=== PATIENT | male | born 1960 | race Caucasian/White ===

== ENCOUNTER 2017-12-26 15:11 | Inpatient (IN) | payer SELFPAY ==
[~2017-12-26] VITALS: Ht 170.2 cm; Wt 89.8 kg
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
[2017-12-26 16:55] LABS: BASOPHILS # (AUTO) 0.1 10^3/uL (0.0-0.1); BASOPHILS % (AUTO) 0 % (0-10); EOSINOPHILS # (AUTO) 0.2 10^3/uL (0.0-0.3); EOSINOPHILS % (AUTO) 1 % (0-10); HEMATOCRIT 39 % (40-54); HEMOGLOBIN 13.4 G/DL (13.3-17.7); LYMPHOCYTES # (AUTO) 1.6 X 10^3 (1.0-4.0); LYMPHOCYTES % (AUTO) 11 % (12-44); MEAN CORPUSCULAR HEMOGLOBIN 31 PG (25-34); MEAN CORPUSCULAR HGB CONC 34 G/DL (32-36); MEAN CORPUSCULAR VOLUME 91 FL (80-99); MEAN PLATELET VOLUME 11.5 FL (7.4-10.4); MONOCYTES # (AUTO) 1.4 X 10^3 (0.0-1.0); MONOCYTES % (AUTO) 10 % (0-12); NEUTROPHILS % (AUTO) 78 % (42-75); PLATELET COUNT 292 10^3/uL (130-400); RED CELL DISTRIBUTION WIDTH 13.3 % (10.0-14.5); WHITE BLOOD COUNT 14.1 10^3/uL (4.3-11.0)
--- NOTE | 2017-12-26 17:09 | Diagnostic Imaging Report ---
INDICATION: Hypertension. FINDINGS: Heart size within the upper limits of normal. There is no vascular congestion. No edema, pneumonia, effusion or pneumothorax. IMPRESSION: Clear lungs with mild hyperexpansion, upper limits heart size but no acute-appearing abnormality. Dictated by: Dictated on workstation # [id number]
[2017-12-26] MEDS ORDERED: NS IV 1000 ML 1,000 ML IV ONE (17:12)
[2017-12-26] MEDS ORDERED: morphine INJ 10 MG/ML 1ML (SYR OR VIAL) IVP STA ×2 (17:12→18:01)
--- NOTE | 2017-12-26 17:14 | Diagnostic Imaging Report ---
PROCEDURE: CT head without contrast. TECHNIQUE: Multiple contiguous axial images were obtained through the brain without the use of intravenous contrast. INDICATION: Severe headache, dizziness, and blurred vision for two weeks. COMPARISON STUDY: None. FINDINGS: Noncontrast CT scanning of the head demonstrates central atrophy greater than cortical atrophy. Periventricular white matter changes are present consistent with transependymal spread of fluid. Hypodensity is present in the bubba worrisome for edema or mass lesion. Recommend MRI for further evaluation. 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 Recommend MRI for further evaluation. Dictated by: Dictated on workstation # [id number]
[2017-12-26 17:15] LABS: ALANINE AMINOTRANSFERASE 13 U/L (0-55); ALKALINE PHOSPHATASE 53 U/L (40-136); BILIRUBIN,TOTAL 0.9 MG/DL (0.1-1.0); BUN/CREATININE RATIO 23; CALCIUM 10.2 MG/DL (8.5-10.1); CARBON DIOXIDE 26 MMOL/L (21-32); CHLORIDE 102 MMOL/L (98-107); CREATINE KINASE 42 U/L (30-200); CREATININE SERUM 1.41 MG/DL (0.60-1.30); GFR ESTIMATED 52; GLUCOSE 97 MG/DL (70-105); MAGNESIUM 2.2 MG/DL (1.8-2.4); POTASSIUM 4.4 MMOL/L (3.6-5.0); SODIUM 138 MMOL/L (135-145); TOTAL PROTEIN 8.2 GM/DL (6.4-8.2)
[2017-12-26] MEDS ORDERED: cefTRIAXone INJECTION 1,000 MG in NS (IVPB) 100 ML IV ONE (17:15)
[2017-12-26 17:21] LABS: BAND NEUTROPHILS 1 %; BASOPHILS % (MANUAL) 1 %; EOSINOPHILS % (MANUAL) 2 %; LYMPHOCYTES % (MANUAL) 26 %; MONOCYTES % (MANUAL) 2 %; NEUTROPHILS % (MANUAL) 68 %; RBC MORPH NORMAL
[2017-12-26 17:34] LABS: CREATINE KINASE MB 1.9 NG/ML (<6.6); MYOGLOBIN SERUM 52.6 NG/ML (10.0-92.0); TSH (THYROID ANALYZER) 1.06 UIU/ML (0.35-4.94)
[2017-12-26] MEDS ORDERED: LABETALOL HCL 20 MG/4 ML VIAL IV ONE (17:45)
[2017-12-26] MEDS ORDERED: GADOBUTROL 10 MMOL/10 ML (GADAVIST) VIAL IV ONE (18:30)
--- NOTE | 2017-12-26 19:09 | Diagnostic Imaging Report ---
PROCEDURE: MR imaging of the brain with and without contrast. TECHNIQUE: Multiplanar, multisequence MR imaging of the brain was performed with and without contrast. INDICATION: Severe head pain, hypertension, dizziness and blurred vision. COMPARISON: Exam interpreted in correlation with head CT performed earlier this same date. FINDINGS: There is swelling and abnormal edema in the brainstem epicenter at the level of the bubba but superiorly extending into the midbrain most notably at the peduncles. There is extension of edema involving into the right greater than left middle cerebellar peduncles as well as the inferior cerebellar hemispheres. There is periventricular white matter hyperintensity on T2 and FLAIR weighted pulse sequences, in part chronic, however some transependymal resorption of CSF could not be excluded as there is a mild degree of lateral and third ventriculomegaly. The brainstem and remaining posterior fossa revealed no abnormal diffusion restriction that would be typically associated with central pontine myelinolysis. This may all reflect a reversible disease as the sequelae of severe hypertension. However, followup with appropriate treatment. There is no abnormal enhancement however altered signal owing to a glioma could not be definitively excluded and would justify followup. No abnormal parenchymal or meningeal enhancement. Supratentorial brain appeared unremarkable aside from the periventricular white matter T2 signal. No extra-axial fluid collection. There is no hemorrhage. There were no findings of an infarct. IMPRESSION: Swelling and edema at the brainstem, most notably at the bubba extending through the middle cerebellar peduncles and extending cephalad into the cerebral peduncles of the midbrain. There is mild lateral and third ventriculomegaly of uncertain acuity. No abnormal enhancement nor abnormal diffusion restriction. Given the history, the sequelae of hypertension is suspected but abnormal osmolality and abnormal sodium could not be excluded in the appropriate scenario. A followup exam within 2-3 weeks is recommended as glioma could not be definitively excluded although felt less likely. In addition, if the severity of hypertension is not substantial and there were no other of abnormal lab studies, CSF analysis and lumbar puncture would be recommended if infection were suspected. Other processes such as ADEM as well as demyelinating disease could also less commonly have this appearance. Again, the sequelae of hypertension is felt to be the leading consideration but this requires clinical correlation and short-term followup. No infarct or hemorrhage. No other substantial abnormality. Dictated by: Dictated on workstation # [id number]
[2017-12-26 19:10] VITALS: BP 137/92
[2017-12-26] MEDS ORDERED: VANCOMYCIN 2000 MG/NS 500 ML IVPB IV NR ×2 (20:32)
[2017-12-26] MEDS ORDERED: ONDANSETRON 4 MG/2 ML (SDV) Z0FRAN IVP PRN (20:45)
[2017-12-26] MEDS: NS W/KCL 20 MEQ/L 1,000 ML IV SCH (22:08)
[2017-12-26] MEDS: morphine INJ 4 MG/ML 1 ML (VIAL/SYRINGE) IVP PRN (22:30)
[2017-12-26] MEDS ORDERED: VANCOMYCIN 1000 MG/VIAL ONE (22:47)
[2017-12-26] MEDS ORDERED: NS IV 500 ML 500 ML ONE (22:53)
[2017-12-27] VITALS (7 sets, daily range): BP systolic 160–193; BP diastolic 50–117
[2017-12-27] MEDS ORDERED: amLODIPine 10 MG (NORVASC) TAB ONE (04:56)
[2017-12-27] MEDS ORDERED: lisINopril 20 MG (PRINIVIL) TABLET ONE (05:00)
[2017-12-27] MEDS: morphine INJ 4 MG/ML 1 ML (VIAL/SYRINGE) IVP PRN (05:09)
[2017-12-27 06:04] LABS: BASOPHILS % (AUTO) 0 % (0-10); EOSINOPHILS # (AUTO) 0.3 10^3/uL (0.0-0.3); EOSINOPHILS % (AUTO) 2 % (0-10); HEMATOCRIT 34 % (40-54); HEMOGLOBIN 11.5 G/DL (13.3-17.7); LYMPHOCYTES # (AUTO) 1.8 X 10^3 (1.0-4.0); LYMPHOCYTES % (AUTO) 16 % (12-44); MEAN CORPUSCULAR HEMOGLOBIN 31 PG (25-34); MEAN CORPUSCULAR HGB CONC 34 G/DL (32-36); MEAN CORPUSCULAR VOLUME 93 FL (80-99); MEAN PLATELET VOLUME 11.3 FL (7.4-10.4); MONOCYTES % (AUTO) 9 % (0-12); NEUTROPHILS # (AUTO) 8.3 X 10^3 (1.8-7.8); NEUTROPHILS % (AUTO) 73 % (42-75); PLATELET COUNT 230 10^3/uL (130-400); RED BLOOD COUNT 3.67 10^6/uL (4.35-5.85); RED CELL DISTRIBUTION WIDTH 13.2 % (10.0-14.5); WHITE BLOOD COUNT 11.4 10^3/uL (4.3-11.0)
[2017-12-27 06:26] LABS: ALANINE AMINOTRANSFERASE 9 U/L (0-55); ALBUMIN 3.3 GM/DL (3.2-4.5); ALKALINE PHOSPHATASE 42 U/L (40-136); BILIRUBIN,TOTAL 0.6 MG/DL (0.1-1.0); BUN/CREATININE RATIO 20; CALCIUM 9.1 MG/DL (8.5-10.1); CARBON DIOXIDE 24 MMOL/L (21-32); CHLORIDE 103 MMOL/L (98-107); CREATININE SERUM 1.28 MG/DL (0.60-1.30); GFR ESTIMATED 58; GLUCOSE 112 MG/DL (70-105); POTASSIUM 4.5 MMOL/L (3.6-5.0); SODIUM 136 MMOL/L (135-145); TOTAL PROTEIN 6.4 GM/DL (6.4-8.2)
[2017-12-27 06:36] LABS: CARDIAC PROFILE 2 < 0.30 NG/ML (<0.30)
[2017-12-27] MEDS ORDERED: THIAMINE 100 MG (VITAMIN B-1) TAB PO SCH (07:00)
[2017-12-27] MEDS: NS W/KCL 20 MEQ/L 1,000 ML IV SCH ×2 (07:32→07:52)
[2017-12-27] MEDS ORDERED: MAGNESIUM OXIDE (MAG-OX)400 MG TAB PO SCH (08:00)
[2017-12-27] MEDS ORDERED: VANCOMYCIN 1250 MG/NS 250 ML IVPB IV SCH ×2 (08:00)
[2017-12-27] MEDS ORDERED: lisINopril 20 MG (PRINIVIL) TABLET PO NR (08:00)
[2017-12-27] MEDS: HYDROcodone/APAP 5 MG/325 MG (LORTAB) TAB PO PRN ×2 (08:01→15:55)
[2017-12-27] MEDS ORDERED: lisINopril 20 MG (PRINIVIL) TABLET PO SCH (09:00)
[2017-12-27] MEDS ORDERED: amLODIPine 5 MG (NORVASC) TAB PO SCH ×2 (09:00)
[2017-12-27] MEDS ORDERED: FOLIC ACID 1 MG TAB PO SCH (09:00)
--- NOTE | 2017-12-27 09:07 | Consultation-Cardiology ---
HPI-Cardiology Cardiology Consultation: Date of Consultation 12/27/17 Date of Admission Attending Physician Agata Marlow MD Admitting Physician [facility] Consulting Physician Prabhu HOOVER MD HPI: Time Seen by Provider: 09:15 Chief Complaint: Hypertension, left upper extremity swelling This is a 57-year-old gentleman who has not been to physicians almost throughout his life. He presented to the ER with complain of left upper extremity swelling. Significantly elevated blood pressure. Patient has had frequent headaches in the last few weeks. However he denies any other cardiac symptoms including chest pain, shortness of breath, palpitation, near syncope or syncope. Active smoker. Review of Systems-Cardiology Review of Systems Constitutional: As described under HPI; No no symptoms reported, No chills, No fever, No lightheadedness, No malaise, No tiredness, No weight loss, No weight gain, No other Eyes: No As described under HPI, No no symptoms reported, No blindness, No blurred vision, No contact lenses, No drainage, No decreased acuity, No foreign body sensation, No pain, No vision change Ears/Nose/Throat: No As described under HPI, No no symptoms reported, No chronic hearing loss, No ear discharge, No ear pain, No nasal drainage, No ulcerations Respiratory: No no symptoms reported; As described under HPI; No As described under HPI, No cough, No orthopnea, No shortness of breath, No SOB with excertion Cardiovascular: No no symptoms reported; As described under HPI; No As described under HPI, No chest pain, No edema, No irregular heart rate, No lightheadedness, No palpitations Gastrointestinal: No no symptoms reported, No As described under HPI, No abdomen distended, No abdominal pain, No blood streaked bowels, No constipation , No diarrhea, No nausea, No vomiting, No stool coloration changes Genitourinary: No As described under HPI, No burning, No dysuria, No discharge , No frequency, No flank pain, No hematuria, No urgency Musculoskeletal: other (upper extremity swelling) Skin: No rash, No skin related problems, No ulcerations Psychiatric/Neurological: headache; No anxiety, No depression, No seizure, No focal weakness, No syncope Hematologic: No bleeding abnormalities All Other Systems Reviewed Negative Unless Noted: Yes (Negative excepted noted.) NGR-Cxiuod-Bhmqbt Hx Patient Social History Alcohol Use: Occasionally Uses Recreational Drug Use: Yes (tried pot for pain in hand) Smoking Status: Current Everyday Smoker 2nd Hand Smoke Exposure: Yes Recent Foreign Travel: No Recent Infectious Disease Expo: No Hospitalization with Isolation: Denies Physical Abuse Screen: No Sexual Abuse: No Past Medical History PMH As described under Assessment. Allergies and Home Medications Allergies Coded Allergies: No Known Drug Allergies (Unverified , 12/26/17) Home Medications No Active Prescriptions or Reported Meds Patient Home Medication List Home Medication List Reviewed: Yes Physical Exam-Cardiology Physical Exam Vital Signs/I&O 12/27/17 12/27/17 12/27/17 12/27/17 04:30 04:33 07:00 08:00 Temp 98.5 97.4 Pulse 87 91 87 Resp 20 20 B/P (MAP) 193/117 (142) 186/114 (138) 160/100 (120) Pulse Ox 96 96 O2 Delivery Room Air Room Air 12/27/17 12:00 Temp 97.4 Pulse 87 Resp 20 B/P (MAP) 160/50 (86) Pulse Ox 96 O2 Delivery Room Air 12/27/17 00:00 Intake Total 1400 ml Balance 1400 ml Capillary Refill : Less Than 3 Seconds Constitutional: appears stated age, AAO x 3; No apparent distress; well- developed, well-nourished HEENT: PERRL; No normal ENT inspection, No TMs normal, No pharynx normal, No scleral icterus (R), No scleral icterus (L), No pale conjunctivae (R), No pale conjunctivae (L), No photophobia, No TM abnormal (R), No TM abnormal (L), No pharyngeal erythema, No tonsillar exudate, No other, No discharge, No EOMI; hearing is well preserved; No hard of hearing; oral hygience is good; No ulceration, No xanthelasmas are seen Neck: No non-tender, No full range of motion, No supple, No normal inspection, No carotid bruit, No limited range of motion, No lymphadenopathy (R), No lymphadenopathy (L), No tender lateral, No tender midline, No thyromegaly, No other; carotid pulses are 2 + bilaterally; No with good upstrokes Respiratory: No accessory muscle use, No respiratory distress, No chest tender , No chest expansion is symmetric; chest is bilaterally symmetric; No lungs clear to percussion; lungs clear to auscultation; No crackles, No rhonchi, No rales, No stridor, No wheezing, No pleural rub, No other Cardiovascular: regular rate-rhythm; No irregularly irregular, No extra beats, No parasternal heave is noted, No JVD, No edema, No bradycardia, No tachycardia , No point of maximal impulse, No cardiac thrills are palpable; S1 and S2; No gallop/S3, No gallop/S4, No diastolic murmur, No systolic murmur, No friction rub, No click, No other Gastrointestinal: No tender, No soft, No round, No distended, No pulsatile mass , No organomegaly, No guarding, No rebound, No tenderness, No hernia, No mass, No audible bowel sounds, No abnormal bowel sounds, No abdominal bruits, No spleenomegaly, No other Rectal: deferred Extremities: No normal range of motion, No non-tender, No normal inspection, No pedal edema, No calf tenderness, No normal capillary refill, No pelvis stable , No calf tenderness, No inflammation, No pedal edema, No slow capillary refill , No swelling; other (upper extremity swelling); No abrasion, No clubbing, No cyanosis, No ecchymosis, No laceration, No no lower extremity edema bilateral, No significant edema, No tenderness, No wound Neurologic/Psychiatric: no motor/sensory deficits, alert, normal mood/affect, oriented x 3, power is 5/5 both on sides Skin: No normal color, No warm/dry, No cyanosis, No cool, No diaphoresis, No damp, No ecchymosis, No jaundice, No mottled, No pallor, No rash, No tattoos/ piercings, No ulcerations, No rash on exposed areas, No ulcerations on exposed areas, No other Data Review Labs Laboratory Tests 12/26/17 16:40: White Blood Count 14.1H, Red Blood Count 4.30L, Hemoglobin 13.4, Hematocrit 39L , Mean Corpuscular Volume 91, Mean Corpuscular Hemoglobin 31, Mean Corpuscular Hemoglobin Concent 34, Red Cell Distribution Width 13.3, Platelet Count 292, Mean Platelet Volume 11.5H, Neutrophils (%) (Auto) 78H, Lymphocytes (%) (Auto) 11L, Monocytes (%) (Auto) 10, Eosinophils (%) (Auto) 1, Basophils (%) (Auto) 0, Neutrophils # (Auto) 11.0H, Lymphocytes # (Auto) 1.6, Monocytes # (Auto) 1.4H, Eosinophils # (Auto) 0.2, Basophils # (Auto) 0.1, Neutrophils % (Manual) 68, Lymphocytes % (Manual) 26, Monocytes % (Manual) 2, Eosinophils % (Manual) 2, Basophils % (Manual) 1, Band Neutrophils 1, Blood Morphology Comment NORMAL, Sodium Level 138, Potassium Level 4.4, Chloride Level 102, Carbon Dioxide Level 26, Anion Gap 10, Blood Urea Nitrogen 32H, Creatinine 1.41H, Estimat Glomerular Filtration Rate 52, BUN/Creatinine Ratio 23, Glucose Level 97, Glucometer 100, Lactic Acid Level 1.10, Calcium Level 10.2H, Magnesium Level 2.2, Total Bilirubin 0.9, Aspartate Amino Transf (AST/SGOT) 16, Alanine Aminotransferase ( ALT/SGPT) 13, Alkaline Phosphatase 53, Total Creatine Kinase 42, Creatine Kinase MB 1.9, Myoglobin 52.6, Troponin I < 0.30, C-Reactive Protein High Sensitivity 18.58H, Total Protein 8.2, Albumin 4.0, TSH [place] Testing 1.06 12/27/17 05:50: White Blood Count 11.4H, Red Blood Count 3.67L, Hemoglobin 11.5L, Hematocrit 34L , Mean Corpuscular Volume 93, Mean Corpuscular Hemoglobin 31, Mean Corpuscular Hemoglobin Concent 34, Red Cell Distribution Width 13.2, Platelet Count 230, Mean Platelet Volume 11.3H, Neutrophils (%) (Auto) 73, Lymphocytes (%) (Auto) 16 , Monocytes (%) (Auto) 9, Eosinophils (%) (Auto) 2, Basophils (%) (Auto) 0, Neutrophils # (Auto) 8.3H, Lymphocytes # (Auto) 1.8, Monocytes # (Auto) 1.0, Eosinophils # (Auto) 0.3, Basophils # (Auto) 0.0, Sodium Level 136, Potassium Level 4.5, Chloride Level 103, Carbon Dioxide Level 24, Anion Gap 9, Blood Urea Nitrogen 26H, Creatinine 1.28, Estimat Glomerular Filtration Rate 58, BUN/ Creatinine Ratio 20, Glucose Level 112H, Calcium Level 9.1, Total Bilirubin 0.6 , Aspartate Amino Transf (AST/SGOT) 14, Alanine Aminotransferase (ALT/SGPT) 9, Alkaline Phosphatase 42, Troponin I < 0.30, Total Protein 6.4, Albumin 3.3, Triglycerides Level 87, Cholesterol Level 165, LDL Cholesterol Direct 101, VLDL Cholesterol 17, HDL Cholesterol 44 12/27/17 10:45: Urine Color YELLOW, Urine Clarity CLEAR, Urine pH 5, Urine Specific [place] 1.020, Urine Protein 3+H, Urine Glucose (UA) NEGATIVE, Urine Ketones NEGATIVE, Urine Nitrite NEGATIVE, Urine Bilirubin NEGATIVE, Urine Urobilinogen NORMAL, Urine Leukocyte Esterase NEGATIVE, Urine RBC (Auto) NEGATIVE, Urine RBC RARE, Urine WBC RARE, Urine Crystals NONE, Urine Bacteria NEGATIVE, Urine Casts NONE, Urine Mucus NEGATIVE, Urine Culture Indicated NO, Urine Opiates Screen POSITIVEH , Urine Oxycodone Screen NEGATIVE, Urine Methadone Screen NEGATIVE, Urine Propoxyphene Screen NEGATIVE, Urine Barbiturates Screen NEGATIVE, Ur Tricyclic Antidepressants Screen NEGATIVE, Urine Phencyclidine Screen NEGATIVE, Urine Amphetamines Screen NEGATIVE, Urine Methamphetamines Screen NEGATIVE, Urine Benzodiazepines Screen NEGATIVE, Urine Cocaine Screen NEGATIVE, Urine Cannabinoids Screen POSITIVEH ECG Impression ECG Initial ECG Rhythm: Normal Sinus A/P-Cardiology Assessment/Admission Diagnosis Left upper extremity cellulitis, Severe hypertension, Active smoking Plan Cellulitis: IV antibiotics. May require ultrasound if no significant improvement. Severe hypertension: Continue lisinopril and amlodipine. Blood pressure much more stable today. Request an echocardiogram. Active smoking: Smoking cessation was strongly recommended. Thank you for your consultation. Please call me if you have any questions. Rachelle Hoover MD, FACP, FACC, FSCAI, FHRS, CCDS Interventional Cardiology Cardiac Electrophysiology Vascular Medicine and Endovascular Interventions Clinical Quality Measures DVT/VTE Risk/Contraindication: Risk Factor Score Per Nursin RFS Level Per Nursing on Admit: 4+=Very High Prabhu HOOVER MD December 27, 2017 09:07
[2017-12-27 11:01] LABS: BILIRUBIN,URINE NEGATIVE (NEGATIVE); CLARITY,URINE CLEAR; COLOR,URINE YELLOW; GLUCOSE, URINE (UA) NEGATIVE (NEGATIVE); KETONES,URINE NEGATIVE (NEGATIVE); LEUKOCYTE ESTERASE ,URINE NEGATIVE (NEGATIVE); NITRITE,URINE NEGATIVE (NEGATIVE); PH,URINE 5 (5-9); PROTEIN,URINE 3+ (NEGATIVE); UROBILINOGEN,URINE NORMAL (NORMAL)
[2017-12-27 11:27] LABS: BACTERIA,URINE NEGATIVE /HPF; RBC,URINE RARE /HPF; WBC,URINE RARE /HPF
[2017-12-27 11:36] LABS: AMPHETAMINE SCREEN, URINE NEGATIVE (NEGATIVE); BARBITURATE SCREEN URINE NEGATIVE (NEGATIVE); BENZODIAZEPINES SCREEN URINE NEGATIVE (NEGATIVE); CANNABINOID SCREEN, URINE POSITIVE (NEGATIVE); COCAINE SCREEN URINE NEGATIVE (NEGATIVE); METHADONE STAT NEGATIVE (NEGATIVE); METHAMPHETAMINE SCREEN URINE S NEGATIVE (NEGATIVE); OPIATE SCREEN URINE POSITIVE (NEGATIVE); OXYCODONE STAT NEGATIVE (NEGATIVE); PROPOXYPHENE STAT NEGATIVE (NEGATIVE); TRICYCLIC ANTIDEPRESSANTS SCRE NEGATIVE (NEGATIVE)
[2017-12-27 12:21] LABS: CHOLESTEROL 165 MG/DL (< 200); HDL CHOLESTEROL 44 MG/DL (40-60); TRIGLYCERIDES 87 MG/DL (<150); VLDL CHOLESTEROL 17 MG/DL (5-40)
--- NOTE | 2017-12-27 15:50 | Short Stay Summary ---
History of Present Illness History of Present Illness Reason for visit/HPI 57 yo M that was sent from walkin clinic at [facility] with HTN urgency and concerns for cellulitis on LUE. Patient states that he has been getting headaches and blurry vision for the last 2 weeks. Prior to that he has not seen a doctor since he was 12 yo. States that he has been told several times when giving plasma that his blood pressure was elevated but never saw anyone for it. Denies any other medical problems. Denies any stroke, [place] or heart disease in his family. Denies ever having chest pain or shortness of breath. Previous EtOH use but states that he does not drink much anymore. Date of Admission December 26, 2017 at 19:33 Date of Discharge 12/27/17 Time Seen by Provider: 10:25 Attending Physician Ezra Marlow MD Admitting Physician [place] [place] Consult Allergies and Home Medications Allergies Coded Allergies: No Known Drug Allergies (Unverified , 12/26/17) Home Medications Amlodipine Besylate 5 Mg Tablet, 10 MG PO DAILY Prescribed by: EZRA MARLOW on 12/27/17 1557 Lisinopril 20 Mg Tablet, 20 MG PO DAILY@0900 Prescribed by: EZRA MARLOW on 12/27/17 1557 Sulfamethoxazole/Trimethoprim 1 Each Tablet, 1 EACH PO BID Prescribed by: EZRA MARLOW on 12/27/17 1557 Patient Home Medication List Home Medication List Reviewed: Yes Past Pdllvvv-Cnzjvs-Lgivno Hx Patient Social History Alcohol Use: Occasionally Uses Recreational Drug Use: Yes (tried pot for pain in hand) Smoking Status: Current Everyday Smoker 2nd Hand Smoke Exposure: Yes Physical Abuse Screen: No Sexual Abuse: No Recent Foreign Travel: No Contact w/other who traveled: No Recent Hopitalizations: No Recent Infectious Disease Expo: No Seasonal Allergies Seasonal Allergies: No Surgeries No Respiratory No Cardiovascular No Neurological Yes Headaches /Migraines Reproductive System Sexually Transmitted Disease: No HIV/AIDS: No Genitourinary No Gastrointestinal No Musculoskeletal No Endocrine History of Endocrine Disorders: No HEENT History of HEENT Disorders: No Cancer No Psychosocial History of Psychiatric Problem: No Integumentary History of Skin or Integumenta: No Blood Transfusions History of Blood Disorders: No Adverse Reaction to a Blood Tr: No Family Medical History Significant Family History: No Pertinent Family Hx Constitutional: No chills; dizziness; No fever; malaise EENTM: blurred vision; No vision loss, No nose congestion Respiratory: no symptoms reported; No cough, No dyspnea on exertion, No short of breath Cardiovascular: no symptoms reported; No chest pain, No edema, No palpitations Gastrointestinal: no symptoms reported; No abdominal pain, No constipation, No diarrhea, No loss of appetite, No nausea, No vomiting Genitourinary: no symptoms reported; No dysuria, No frequency, No hematuria Musculoskeletal: No back pain, No joint pain; joint swelling (Left UE), muscle pain Skin: rash (LUE) Psychiatric/Neurological: Headache; Denies Numbness, Denies Tingling, Denies Weakness Physical Exam Vital Signs Vital Signs - First Documented 12/26/17 12/26/17 15:13 19:10 Temp 98.1 Pulse 101 Resp 18 B/P (MAP) 225/153 (177) Pulse Ox 93 O2 Delivery Room Air Capillary Refill : Less Than 3 Seconds General Appearance: No Apparent Distress, WD/WN HEENT: PERRL/EOMI Neck: Full Range of Motion, Normal Inspection, Non Tender, Supple; No Carotid Bruit Respiratory: Chest Non Tender, Lungs Clear, Normal Breath Sounds, No Accessory Muscle Use, No Respiratory Distress Cardiovascular: Regular Rate, Rhythm, No Murmur, Normal Peripheral Pulses Gastrointestinal: Normal Bowel Sounds, No Organomegaly, Non Tender, Soft Back: Normal Inspection, No CVA Tenderness, No Vertebral Tenderness Extremity: Normal Capillary Refill, Non Tender, No Calf Tenderness, No Pedal Edema, Other (LUE with swelling and erythema with mild ttp) Neurologic/Psychiatric: Alert, Oriented x3, No Motor/Sensory Deficits, Normal Mood/Affect, event services manager II-XII Norm as Tested Skin: Erythema (warmth LUE), Rash Lymphatic: No Adenopathy Clinical Quality Measures DVT/VTE Risk/Contraindication: Risk Factor Score Per Nursin RFS Level Per Nursing on Admit: 4+=Very High Short Stay Diagnosis Discharge Diagnosis-Short Stay Admission Diagnosis: HTN Urgency LUE Cellulitis Acute kidney failure likely 2/2 HTN Final Discharge Diagnosis: See above Conclusion Labs Laboratory Tests 12/26/17 16:40: White Blood Count 14.1H, Red Blood Count 4.30L, Hemoglobin 13.4, Hematocrit 39L , Mean Corpuscular Volume 91, Mean Corpuscular Hemoglobin 31, Mean Corpuscular Hemoglobin Concent 34, Red Cell Distribution Width 13.3, Platelet Count 292, Mean Platelet Volume 11.5H, Neutrophils (%) (Auto) 78H, Lymphocytes (%) (Auto) 11L, Monocytes (%) (Auto) 10, Eosinophils (%) (Auto) 1, Basophils (%) (Auto) 0, Neutrophils # (Auto) 11.0H, Lymphocytes # (Auto) 1.6, Monocytes # (Auto) 1.4H, Eosinophils # (Auto) 0.2, Basophils # (Auto) 0.1, Neutrophils % (Manual) 68, Lymphocytes % (Manual) 26, Monocytes % (Manual) 2, Eosinophils % (Manual) 2, Basophils % (Manual) 1, Band Neutrophils 1, Blood Morphology Comment NORMAL, Sodium Level 138, Potassium Level 4.4, Chloride Level 102, Carbon Dioxide Level 26, Anion Gap 10, Blood Urea Nitrogen 32H, Creatinine 1.41H, Estimat Glomerular Filtration Rate 52, BUN/Creatinine Ratio 23, Glucose Level 97, Glucometer 100, Lactic Acid Level 1.10, Calcium Level 10.2H, Magnesium Level 2.2, Total Bilirubin 0.9, Aspartate Amino Transf (AST/SGOT) 16, Alanine Aminotransferase ( ALT/SGPT) 13, Alkaline Phosphatase 53, Total Creatine Kinase 42, Creatine Kinase MB 1.9, Myoglobin 52.6, Troponin I < 0.30, C-Reactive Protein High Sensitivity 18.58H, Total Protein 8.2, Albumin 4.0, TSH [place] Testing 1.06 12/27/17 05:50: White Blood Count 11.4H, Red Blood Count 3.67L, Hemoglobin 11.5L, Hematocrit 34L , Mean Corpuscular Volume 93, Mean Corpuscular Hemoglobin 31, Mean Corpuscular Hemoglobin Concent 34, Red Cell Distribution Width 13.2, Platelet Count 230, Mean Platelet Volume 11.3H, Neutrophils (%) (Auto) 73, Lymphocytes (%) (Auto) 16 , Monocytes (%) (Auto) 9, Eosinophils (%) (Auto) 2, Basophils (%) (Auto) 0, Neutrophils # (Auto) 8.3H, Lymphocytes # (Auto) 1.8, Monocytes # (Auto) 1.0, Eosinophils # (Auto) 0.3, Basophils # (Auto) 0.0, Sodium Level 136, Potassium Level 4.5, Chloride Level 103, Carbon Dioxide Level 24, Anion Gap 9, Blood Urea Nitrogen 26H, Creatinine 1.28, Estimat Glomerular Filtration Rate 58, BUN/ Creatinine Ratio 20, Glucose Level 112H, Calcium Level 9.1, Total Bilirubin 0.6 , Aspartate Amino Transf (AST/SGOT) 14, Alanine Aminotransferase (ALT/SGPT) 9, Alkaline Phosphatase 42, Troponin I < 0.30, Total Protein 6.4, Albumin 3.3, Triglycerides Level 87, Cholesterol Level 165, LDL Cholesterol Direct 101, VLDL Cholesterol 17, HDL Cholesterol 44 12/27/17 10:45: Urine Color YELLOW, Urine Clarity CLEAR, Urine pH 5, Urine Specific [place] 1.020, Urine Protein 3+H, Urine Glucose (UA) NEGATIVE, Urine Ketones NEGATIVE, Urine Nitrite NEGATIVE, Urine Bilirubin NEGATIVE, Urine Urobilinogen NORMAL, Urine Leukocyte Esterase NEGATIVE, Urine RBC (Auto) NEGATIVE, Urine RBC RARE, Urine WBC RARE, Urine Crystals NONE, Urine Bacteria NEGATIVE, Urine Casts NONE, Urine Mucus NEGATIVE, Urine Culture Indicated NO, Urine Opiates Screen POSITIVEH , Urine Oxycodone Screen NEGATIVE, Urine Methadone Screen NEGATIVE, Urine Propoxyphene Screen NEGATIVE, Urine Barbiturates Screen NEGATIVE, Ur Tricyclic Antidepressants Screen NEGATIVE, Urine Phencyclidine Screen NEGATIVE, Urine Amphetamines Screen NEGATIVE, Urine Methamphetamines Screen NEGATIVE, Urine Benzodiazepines Screen NEGATIVE, Urine Cocaine Screen NEGATIVE, Urine Cannabinoids Screen POSITIVEH Conclusion/Plan 57 yo M that was admitted for HTN urgency, AKF and cellulitis HTN Urgency: Patient has h/o elevated blood pressures but has never had any medical treatment or been on medications. Headache is improved since blood pressure is better controlled. Started on Norvasc and Lisinopril to help with blood pressure control. A1c pending. Discussed low salt diet and goal for weight loss. CT/MRI head showed changes consistent with uncontrolled HTN. Cellulitis: Started on IV antibiotics while admitted and transitioned to PO Bactrim to cover for MRSA. Return precautions given. Patient has close follow up on Monday. Acute Kidney Failure: Likely 2/2 to uncontrolled HTN. Improved with IVFs. Will need repeat labs as outpatient in 4-6 weeks Copy Copies To 1: Radha HAWKINS HOLLY R MD December 27, 2017 3:50 pm
[2017-12-27] MEDS ORDERED: LISI-552 PO (15:57)
[2017-12-27] MEDS ORDERED: SULF1TAB35 PO (15:57)
[2017-12-27] MEDS ORDERED: AMLO5TAB2 PO (15:57)
--- NOTE | 2017-12-27 16:01 | Discharge Instructions ---
Discharge Inst-[facility] Discharge Medications New, Converted or Re-Newed RX: Transmitted to Pharmacy ([facility]) New Medications: Sulfamethoxazole/Trimethoprim (Bactrim Ds Tablet) 1 Each Tablet 1 EACH PO BID for 10 Days, #20 TAB Amlodipine Besylate (Amlodipine Besylate) 5 Mg Tablet 10 MG PO DAILY for 30 Days, #30 TAB Lisinopril (Lisinopril) 20 Mg Tablet 20 MG PO DAILY@0900, #30 TAB Patient Instructions Goal/Follow Up Appt: You have an appt with Radha Linn on Friday December 29, 2017 @ 2PM, It is very important that you keep this appt so that we can see how your blood pressure is trending with the new medications Patient Instructions: - Make sure you take you blood pressure medications every day. You can take them in the AM or PM. - Please be sure to complete your antiboitics Return to The Hospital For: - Stroke like symptoms - Shortness of breath - Chest pain Activity & Diet Discharge Diet: Cardiac Diet Activity as Tolerated: Yes Copy Copies To 1: Radha HAWKINS HOLLY R MD December 27, 2017 16:01
[2017-12-27] MEDS ORDERED: cefTRIAXone 1 GM/NS 100 ML IVPB IV SCH ×2 (20:00)
[2017-12-28] MEDS ORDERED: TROUGH ORDER-PHARMACY XX NR (07:00)
== END 2017-12-27 17:40 | disposition home or self-care (01) | DRG 305 ==
LOC: ER 15:15 → 4TH 19:33
PROVIDERS: ADMIT Family Medicine; ATTEND Family Medicine
DX: I16.0 Hypertensive urgency (principal); N17.9 Acute kidney failure, unspecified; L03.114 Cellulitis of left upper limb; F17.290 Nicotine dependence, other tobacco product, uncomplicated; G43.909 Migraine, unspecified, not intractable, without status migrainosus
CPT/HCPCS: 36415; 70450; 70553; 71045; 80053; 80061; 80306; 81000; 82550; 82553; 82962; 83036; 83605; 83735; 83874; 84443; 84484; 85007; 85025; 85027; 86141; 87040; 93005; 93306; 96361; 96365; 96366; 96375

== ENCOUNTER → 2018-06-15 | Outpatient (CLI) | payer OTHER ==
[~2018-06-15] MED LIST: AMLO5TAB7 PO; LISI-552 PO; RT-ALBUTEROL SULF 2.5 MG/3 ML PRE-MIX VIAL INH ONE; RT-ALBUTEROL SULF 2.5 MG/3 ML PRE-MIX VIAL ONE; SULF1TAB35 PO
== END ==
LOC: RT 10:31
PROVIDERS: ATTEND Surgery
DX: Z02.71 Encounter for disability determination (principal)
CPT/HCPCS: 94060